=== PATIENT | female | born 1995 | race Caucasian/White ===

== ENCOUNTER 2016-08-15 14:14 | Emergency (ER) | payer OTHER ==
[~2016-08-15] VITALS: Ht 162.6 cm; Wt 65.0 kg
[~2016-08-15 14:14] MED LIST: NAPR500T PO
[2016-08-15 14:16] VITALS: BP 113/68; PULSE 80; RESP 18; TEMP 97.8; O2SAT 99
[2016-08-15] MEDS ORDERED: ACETAMINOPHEN 500 MG CPLT PO ONE (15:15)
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
== END 2016-08-15 16:56 | disposition home or self-care (01) ==
LOC: NEPC 14:14
DX: S16.1XXA Strain of muscle, fascia and tendon at neck level, initial encounter (principal); S50.12XA Contusion of left forearm, initial encounter; F43.20 Adjustment disorder, unspecified; V49.40XA Driver injured in collision with unspecified motor vehicles in traffic accident, initial encounter; Y92.488 Other paved roadways as the place of occurrence of the external cause
CPT/HCPCS: 72125; 99283; L0150